=== PATIENT | male | born 1990 | race Two or more races ===

== ENCOUNTER 2017-04-27 00:19 | Emergency (ER) | payer MEDICAID ==
[~2017-04-27] VITALS: Ht 177.8 cm; Wt 88.5 kg
[2017-04-27 00:22] VITALS: BP 151/91
[2017-04-27] MEDS ORDERED: IBUPROFEN 200 MG TABLET PO ONE (02:00)
== END 2017-04-27 02:11 | disposition home or self-care (01) ==
LOC: ED 01:45
DX: H66.001 Acute suppurative otitis media without spontaneous rupture of ear drum, right ear (principal); B34.9 Viral infection, unspecified
CPT/HCPCS: 99283